=== PATIENT | female | born 1955 | race Hispanic/Latino ===

== ENCOUNTER 2018-06-18 22:15 | Emergency (ER) | payer OTHER ==
[~2018-06-18] VITALS: Ht 152.4 cm; Wt 70.8 kg
[2018-06-18] MEDS ORDERED: HYDROCODONE/APAP 10MG-325MG TAB PO ONE (22:30)
--- NOTE | 2018-06-18 23:02 | Diagnostic Imaging Report ---
LEFT HAND AND WRIST 3 VIEWS HISTORY: Status post fall COMPARISON: None FINDINGS: Bones: Acute, comminuted, intra-articular fracture of the distal radius and avulsion of the ulnar styloid process Joints: Moderate periarticular demineralization. Soft tissues: The soft tissues appear unremarkable. IMPRESSION: 1. Acute intra-articular fracture of the distal radius and avulsion injury of the ulnar styloid process. Signed by: Dr. Kushal Delacruz M.D. on 06/18/2018 10:59 PM
--- NOTE | 2018-06-18 23:02 | Diagnostic Imaging Report ---
RIGHT HAND AND WRIST 3 VIEWS HISTORY: Status post fall COMPARISON: None FINDINGS: Bones: Fracture of the tuft of the fourth digit of indeterminate age, the missing fragment and the lack of edema in the area of bony defect suggest an old traumatic processes sequela of prior infection. Osseous alignment is within normal limits. Joints: Moderate periarticular demineralization. First metacarpophalangeal joint degenerative changes. Soft tissues: The soft tissues appear unremarkable. IMPRESSION: 1. No acute radiographic abnormality. 2. Finding at the tuft of the fourth digit is most likely remote. Correlate with direct visualization. Signed by: Dr. Kushal Delacruz M.D. on 06/18/2018 10:58 PM
[2018-06-18] MEDS ORDERED: ONDANSETRON HCL 4 MG ORAL DISINTEGRATING TAB PO ONE (23:15)
[2018-06-23] MEDS ORDERED: NAPROXEN250 MG PO (14:47)
[2018-06-23] MEDS ORDERED: TYLENOL # 31 EA PO (14:53)
== END 2018-06-18 23:46 | disposition home or self-care (01) ==
LOC: ER 22:15
DX: S52.592A Other fractures of lower end of left radius, initial encounter for closed fracture (principal); W18.39XA Other fall on same level, initial encounter; Y92.488 Other paved roadways as the place of occurrence of the external cause
CPT/HCPCS: 99283

== ENCOUNTER → 2018-06-25 | Day surgery (SDC) | payer OTHER ==
[~2018-06-25] MED LIST: BACITRACIN 50,000 UNIT VIAL ONE; BUPIVACAINE HCL 0.5% INJ 30 ML VIAL INJ ONE; DEXAMETHASONE SOD PHOS INJ 4 MG/ML VIAL ONE; FENTANYL CITRATE/PF 100MCG/2 ML INJ ONE; KETOROLAC TROMETHAMINE 30 MG/ML VIAL ONE; METOCLOPRAMIDE HCL 10 MG/2ML VIAL ONE; MIDAZOLAM HCL 2 MG/2 ML VIAL ONE; NAPROXEN250 MG PO; ONDANSETRON HCL INJ 2 MG/ML VIAL ONE; PROMETHAZINE HCL (IM) 25 MG/ML VIAL ONE; PROPOFOL IV EMULSION 10 MG/ML 20 ML VIAL ONE; SEVOFLURANE INHAL SOLN 250 ML PEN BTL ONE; TYLENOL # 31 EA PO
[2018-06-25] MEDS: CEFAZOLIN SOD 2 GM/D5W 50ML 50 ML IV ONE (08:43)
[2018-06-25 13:55] VITALS: BP 129/63
--- NOTE | 2018-06-25 21:44 | Operative Report ---
DATE OF PROCEDURE: June 25, 2018 PREOPERATIVE DIAGNOSIS: Displaced left distal radius fracture. POSTOPERATIVE DIAGNOSIS: Displaced left distal radius fracture. OPERATION/PROCEDURE PERFORMED: Patient underwent closed reduction and percutaneous pinning of the left distal radius fracture. CLAIMS ACCOUNT SPECIALIST: None. ANESTHESIA: General endotracheal intubation anesthesia. IV FLUIDS: See anesthesia record. BRIEF DESCRIPTION OF PATIENT'S OPERATIVE PROCEDURE: Ms. Sheikh was taken to the operating room, placed in supine on operating table. Following induction of general anesthesia, as well as endotracheal intubation, the patient's left upper extremity was examined under anesthesia. She was found to have bruise and ecchymosis involving the left wrist joint. Fluoroscopic evaluation of the wrist joint demonstrated a displaced Colles fracture of the left wrist. The patient's upper extremity was prepped and draped in standard surgical fashion. The case was begun by prepping and draping of the upper extremity. The left upper extremity was visualized fluoroscopically and she was found to have dorsally malaligned and angulated distal radius fracture. With the patient asleep and relaxed, the wrist was reduced in a closed fashion and confirmed using fluoroscopy. Two 0.062 K-wires were then inserted from distal to proximal, transfixing the fracture in its reduced position. The position of those pins, as well as the reduction of fracture site was assessed using fluoroscopy, found to be appropriate. The pin sites were then dressed sterilely. The sugar tong splint was applied to the upper extremity and the patient was then awakened, taken to postanesthesia care unit in stable condition. Job#: [id number] CQ
== END | disposition home or self-care (01) ==
LOC: OR 07:47
PROVIDERS: ATTEND Specialist
DX: S52.532A Colles' fracture of left radius, initial encounter for closed fracture (principal); S63.521A Sprain of radiocarpal joint of right wrist, initial encounter; W01.198A Fall on same level from slipping, tripping and stumbling with subsequent striking against other object, initial encounter; Y93.E5 Activity, floor mopping and cleaning; Y92.89 Other specified places as the place of occurrence of the external cause; Y99.0 Civilian activity done for income or pay; Z01.810 Encounter for preprocedural cardiovascular examination
CPT/HCPCS: 76000; 93005; J1100; J1885; J2250; J2405; J2550; J2765